=== PATIENT | female | born 1970 | race Caucasian/White ===

== ENCOUNTER → 2019-10-02 14:46 | Outpatient (CLI) | payer OTHER, SELFPAY ==
[2019-10-02 15:14] LABS: Urine Pregnancy, HCG Qual. Negative (Negative)
== END ==
PROVIDERS: Visit Provider Internal Medicine
DX: N91.1 Secondary amenorrhea (principal)
CPT/HCPCS: 81025

== ENCOUNTER → 2020-01-01 12:08 | Outpatient (CLI) | payer OTHER, SELFPAY ==
--- NOTE | 2020-01-01 | CT_ITS ---
PROCEDURE: CT ABDOMEN PELVIS WO CON CLINICAL INDICATION: LBP, NV, AND HEMATURIA COMPARISON: CT CT ABDOMEN PELVIS WO CON from 01/05/2019 TECHNIQUE: Axial images obtained with sagittal and coronal reformats. All CT scans at the facility use one or more dose reduction, viz: automated exposure control, ma/kV adjustment per patient size (including targeted exams where dose is matched to indication, i.e. head), or iterative reconstruction technique. FINDINGS: Lower thorax: The lower lung byrd are clear of infiltrate and there is no pleural fluid. There is a calcified granuloma subpleural location left midlung ABDOMEN: Liver: The liver is normal in size showing mild diffuse all were all attenuation consistent with fatty infiltration. There are no focal lesions. Gallbladder: The gallbladder is normal in size and shows is subtle heterogenic appearance suggesting possibility of biliary sludge but no definite gallstones are seen. Pancreas: No masses or peripancreatic fluid collections. Spleen: unremarkable Adrenals: Normal. Kidneys: The kidneys are normal in size and no calculi in either kidney. There is mild fullness of the left renal pelvis but there is no hydroureter on either side. There is a tiny calculus left-sided urinary bladder probably recently passed from the distal ureter. ABDOMEN & PELVIS: Stomach bowel: The the stomach duodenal sweep and small bowel appear normal. The appendix is normal. There is moderate scattered stool and gas in the right and transverse colon. The descending and sigmoid colon are decompressed. Peritoneum: There is a tiny umbilical hernia containing fat only. Lymph nodes: No enlarged lymph nodes apparent. Vasculature: No evidence of abdominal aortic aneurysm. No retroperitoneal hemorrhage evident. Bones: No acute fracture PELVIS: Reproductive: The uterus is normal in size and in the midline. Bladder: The urinary bladder is decompressed, there is a tiny amount of fluid in the cul-de-sac likely physiologic. Appendix: Normal IMPRESSION: Probably recently passed distal ureteral calculus left-side, other nonacute findings as described Dictated by: Dr. Chino Santiago MD 01/01/2020 13:05 Dr. Chino Santiago MD in [facility] 01/01/2020 13:05
== END ==
PROVIDERS: PCP Internal Medicine; Visit Provider Internal Medicine
DX: R31.9 Hematuria, unspecified (principal); M54.5 Low back pain; R11.2 Nausea with vomiting, unspecified
CPT/HCPCS: 74176

== ENCOUNTER → 2020-01-28 14:56 | Outpatient (CLI) | payer OTHER, SELFPAY ==
--- NOTE | 2020-01-28 15:01 | XR_ITS ---
PROCEDURE: XR FINGER RT MIN 2V CLINICAL INDICATION: R THUMB PAIN COMPARISON: No exams were available for comparison FINDINGS: No fracture or dislocation. No lytic or blastic change. There is normal mineralization. There are minimal osteoarthritic changes at the interphalangeal joint of the thumb. No fracture or dislocation Other findings:Annotation zone the exam overlie the tuft of the distal phalanx on the lateral view obscuring that portion of the bone. 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 Artifact overlies the tuft of the distal phalanx. If this is area of concern then the study should be repeated at no additional charge. Dictated by: Cj Lewis MD 01/28/2020 15:33 Cj Lewis MD in [facility] 01/28/2020 15:33
== END ==
PROVIDERS: PCP Internal Medicine; Visit Provider Internal Medicine
DX: M79.641 Pain in right hand (principal)
CPT/HCPCS: 73140